=== PATIENT | female | born 1965 | race Caucasian/White ===

== ENCOUNTER 2017-01-06 05:40 | Day surgery (SDC) | payer BC ==
[~2017-01-06] VITALS: Ht 162.6 cm; Wt 55.3 kg
[2017-01-06 07:01] VITALS: Ht 162.6 cm; Wt 55.3 kg
[2017-01-06] MEDS ORDERED: MULTI PO (07:06)
[2017-01-06 07:16] VITALS: BP 105/53; PULSE 68; RESP 20
[2017-01-06] MEDS ORDERED: FENTAnyl 50 MCG/ML VIAL ONE (07:42)
[2017-01-06] MEDS ORDERED: MIDAZOLAM 1 MG/ML 2 ML INJ ONE (07:42)
[2017-01-06 08:04] VITALS: BP 87/50; PULSE 60; RESP 15
--- NOTE | 2017-01-06 08:22 | GILP ---
DATE OF PROCEDURE: NAME OF PROCEDURE: Esophagogastroduodenoscopy and biopsy. SURGEON: Tad Jean Baptiste MD PREOPERATIVE DIAGNOSIS: Abdominal pain. POSTOPERATIVE DIAGNOSES: 1. Gastritis with erosions. 2. Gastric mucosal biopsies were positive for H. pylori infection. 3. Small bowel biopsies were taken to rule out celiac disease. INDICATION FOR THE PROCEDURE: Ms. Elida Baptiste is a 51-year-old female patient who had upper abdo mamta pain not responding to therapy. The patient was scheduled for endoscopic examination for furt her evaluation. The procedure and possible complications were well explained to the patient. She understood and con sented to the procedure. DESCRIPTION OF PROCEDURE: Under the influence of fentanyl and Versed the gastroscope was carefully introduced into the esophagus and under direct vision, it was advanced to the stomach and through th e pylorus, into the duodenal bulb and descending duodenum. FINDINGS: ESOPHAGUS: The mucosa was normal. STOMACH: The patient had gastritis with erosions. Gastric mucosal biopsies were positive for H. py dwight test. DUODENUM: Normal. Small bowel biopsies were taken to rule out celiac disease. She tolerated the procedure very well and there was no complication from the procedure. At the end of the procedure she was awake with stable vital signs and she was discharged home to the care of he r family. IMPRESSION: 1. Gastritis with erosions. 2. Gastric mucosal biopsies were positive for Helicobacter pylori infection. 3. Small bowel biopsies were taken to rule out celiac disease. PLAN: 1. Zantac 300 mg p.o. b.i.d. for 14 days. 2. Doxycycline 100 mg p.o. b.i.d. for 14 days. 3. Flagyl 500 mg p.o. b.i.d. for 14 days. 4. Pepto-Bismol 2 tablets p.o. q.i.d. for 14 days. 5. Await small bowel biopsy report. Dictated By: TAD VERGARA/TRIXIE Conf#: [id number] DID#: [id number]
== END 2017-01-06 15:18 | disposition home or self-care (01) ==
LOC: GIL 05:40
PROVIDERS: ATTEND Internal Medicine Gastroenterology
DX: K29.60 Other gastritis without bleeding (principal); B96.81 Helicobacter pylori [H. pylori] as the cause of diseases classified elsewhere
CPT/HCPCS: 43239; 84703; 87081; 88305; J2250; J3010; Z7610

== ENCOUNTER 2017-03-03 07:13 | Day surgery (SDC) | END 2017-03-03 12:12 | disposition home or self-care (01) | DX: Z12.11 Encounter for screening for malignant neoplasm of colon (principal); K64.8 Other hemorrhoids | CPT/HCPCS: 45378; 84703; J2250; J3010; Z7610 ==